=== PATIENT | female | born 1995 | race Hispanic/Latino ===

== ENCOUNTER 2021-03-15 14:15 | Emergency (ER) | payer OTHER ==
[~2021-03-15] VITALS: Ht 167.6 cm; Wt 59.0 kg
[2021-03-15] MEDS ORDERED: FAMOTIDINE 20 MG/2 ML VIAL IV STA (14:26)
[2021-03-15] MEDS ORDERED: METHYLPREDNISOLONE SOD SUCC 125 MG/2ML VIAL IV ONE (14:30)
[2021-03-15] MEDS ORDERED: PREDNISONE20 MG PO (15:09)
[2021-03-15 15:17] VITALS: BP 114/62
== END 2021-03-15 15:25 | disposition home or self-care (01) ==
LOC: ER 14:17
DX: R21 Rash and other nonspecific skin eruption (principal); R07.89 Other chest pain; R06.02 Shortness of breath; T78.40XA Allergy, unspecified, initial encounter
CPT/HCPCS: 99284; J2930